=== PATIENT | female | born 1960 | race Caucasian/White ===

== ENCOUNTER 2024-09-20 17:01 | Inpatient (IN) ==
[2024-09-20] MEDS: 0.9 % SODIUM CHLORIDE 1,000 ML IV ONE ×2 (17:20→19:29)
[2024-09-20] MEDS: NOREPINEPHRINE 250 ML IV SCH ×2 (17:51→22:14)
[2024-09-20] MEDS: 0.9 % SODIUM CHLORIDE 250 ML IV SCH ×2 (17:53→22:14)
[2024-09-20 17:58] LABS: Basophils # (Auto) 0.01 K/mcL (0.00-0.30); Basophils % (Auto) 0.1 % (0.0-2.0); Eosinophils # (Auto) 0.34 K/mcL (0.00-0.70); Eosinophils % (Auto) 2.9 % (0.0-7.0); Hematocrit 35.7 % (34.1-44.9); Hemoglobin 11.9 g/dL (11.2-15.7); Lymphocytes # (Auto) 1.27 K/mcL (1.50-4.80); Mean Cell Volume 88.4 fL (80.0-100.0); Mean Corpuscular HGB Conc 33.3 g/dL (31.0-36.0); Mean Platelet Volume 11.2 fL (8.8-12.5); Monocytes # (Auto) 0.67 K/mcL (0.10-0.90); Monocytes % (Auto) 5.8 % (1.0-12.0); Neutrophils % (Auto) 79.8 % (38.0-78.0); Platelet Count 231 K/mcL (140-440); RBC 4.04 M/mcL (3.59-5.38); Red Cell Distribution Width 13.8 % (11.5-14.5); WBC 11.6 K/mcL (4.5-11.0)
[2024-09-20 18:27] LABS: ALT/SGPT 19 U/L (<40); AST/SGOT 16 U/L (<32); Albumin 3.8 gm/dL (3.2-5.2); Albumin/Globulin Ratio 1.4 (1.0-2.3); Alkaline Phosphatase 87 U/L (39-117); Bilirubin,Total 0.8 mg/dL (0.1-1.0); Blood Urea Nitrogen 46 mg/dL (8-23); Calcium 9.4 mg/dL (8.6-10.4); Carbon Dioxide 19 mmol/L (22-30); Chloride 100 mmol/L (96-108); Globulin 2.8 gm/dL (2.2-3.7); Glomerular Filtration Rate 10; Glucose 136 mg/dL (70-105); Potassium 3.8 mmol/L (3.3-5.1); Sodium 136 mmol/L (133-145)
[2024-09-20] MEDS ORDERED: IPRATROPIUM/ALBUTEROL 3 ML AMPUL.NEB NEB PRN (21:29)
[2024-09-20] MEDS ORDERED: ONDANSETRON 4 MG/2 ML VIAL IV PRN (21:29)
[2024-09-20] MEDS ORDERED: LOPERAMIDE 2 MG CAPSULE PO PRN (21:29)
[2024-09-20 22:09] LABS: Haptoglobin 276 mg/dL (30-200); Lactate Dehydrogenase 177 U/L (135-225)
[2024-09-20] MEDS: PIPERACILLIN SODIUM/TAZOBACTAM 4.5 GM in DEXTROSE 5% IN WATER 100 ML IV SCH (22:12)
[2024-09-20] MEDS: 0.9 % SODIUM CHLORIDE 1,000 ML IV SCH (22:12)
[2024-09-20] MEDS: 0.9 % SODIUM CHLORIDE 10 ML SYRINGE IV SCH (22:13)
[2024-09-20] MEDS: NOREPINEPHRINE BITARTRATE 8 MG in 0.9 % SODIUM CHLORIDE 242 ML IV SCH (22:14)
[2024-09-20] MEDS: HEPARIN 5,000 UNIT/ML VIAL SQ SCH (22:45)
[2024-09-20 23:25] LABS: Appearance,Urine Cloudy (Clear); Bacteria,Urine Mod /hpf (0); Bilirubin,Urine Negative (Negative); Color,Urine Yellow; Glucose,Urine (UA) 500 mg/dL (Negative); Ketones,Urine Trace mg/dL (Negative); Leukocyte Esterase,Urine Moderate /uL (Negative); Nitrate,Urine Positive (Negative); PH,Urine 5.5 (5.0-9.0); Protein,Urine 100 mg/dL (Negative); Urine Blood Moderate ery/mcL (Negative); Urine RBC 30 /hpf (0-3); Urine Squamous Epithelial Cell 4 /hpf (0-4); Urine WBC > 182 /hpf (0-4); Urobilinogen,Urine Normal
[2024-09-20] MEDS: PRAMIPEXOLE 1 MG TABLET PO ONE (23:45)
[2024-09-21] MEDS: ACETAMINOPHEN 325 MG TABLET PO PRN (04:15)
[2024-09-21 06:04] LABS: Basophils # (Auto) 0.01 K/mcL (0.00-0.30); Basophils % (Auto) 0.1 % (0.0-2.0); Eosinophils # (Auto) 0.43 K/mcL (0.00-0.70); Eosinophils % (Auto) 4.5 % (0.0-7.0); Hematocrit 31.7 % (34.1-44.9); Hemoglobin 10.8 g/dL (11.2-15.7); Lymphocytes # (Auto) 0.97 K/mcL (1.50-4.80); Lymphocytes % (Auto) 10.1 % (15.5-49.0); Mean Cell Volume 87.8 fL (80.0-100.0); Mean Corpuscular HGB Conc 34.1 g/dL (31.0-36.0); Mean Platelet Volume 10.9 fL (8.8-12.5); Monocytes # (Auto) 0.73 K/mcL (0.10-0.90); Monocytes % (Auto) 7.6 % (1.0-12.0); Neutrophils % (Auto) 77.3 % (38.0-78.0); Platelet Count 199 K/mcL (140-440); RBC 3.61 M/mcL (3.59-5.38); WBC 9.6 K/mcL (4.5-11.0)
[2024-09-21 06:20] LABS: Phosphorous 3.9 mg/dL (2.5-4.5)
[2024-09-21 06:44] LABS: ALT/SGPT 16 U/L (<40); AST/SGOT 13 U/L (<32); Albumin 3.3 gm/dL (3.2-5.2); Albumin/Globulin Ratio 1.4 (1.0-2.3); Alkaline Phosphatase 79 U/L (39-117); Bilirubin,Total 0.6 mg/dL (0.1-1.0); Blood Urea Nitrogen 41 mg/dL (8-23); Calcium 8.3 mg/dL (8.6-10.4); Carbon Dioxide 16 mmol/L (22-30); Chloride 105 mmol/L (96-108); Globulin 2.4 gm/dL (2.2-3.7); Glomerular Filtration Rate 14; Glucose 112 mg/dL (70-105); Potassium 3.3 mmol/L (3.3-5.1); Sodium 136 mmol/L (133-145)
[2024-09-21] MEDS: OMEPRAZOLE 20 MG CAPSULE PO SCH (07:28)
[2024-09-21] MEDS ORDERED: PANTOPRAZOLE 40 MG TABLET PO SCH (07:30)
[2024-09-21] MEDS: ASPIRIN 81 MG TAB.CHEW PO SCH (10:19)
[2024-09-21] MEDS: POTASSIUM CHLORIDE 20 MEQ TABLET PO SCH (10:20)
[2024-09-21] MEDS: Dapagliflozin Propanediol [Farxiga] 10 mg tablet PO SCH (11:43)
[2024-09-21] MEDS: PRAMIPEXOLE 1 MG TABLET PO SCH (20:16)
[2024-09-21] MEDS: ATORVASTATIN 20 MG TABLET PO SCH (20:16)
[2024-09-21] MEDS: LACTOBACILLUS 1 CAPSULE PO SCH (20:16)
[2024-09-22 06:39] LABS: Phosphorous 2.6 mg/dL (2.5-4.5)
[2024-09-22 06:42] LABS: ALT/SGPT 20 U/L (<40); AST/SGOT 15 U/L (<32); Albumin 3.2 gm/dL (3.2-5.2); Albumin/Globulin Ratio 1.5 (1.0-2.3); Alkaline Phosphatase 90 U/L (39-117); Basophils # (Auto) 0.01 K/mcL (0.00-0.30); Basophils % (Auto) 0.2 % (0.0-2.0); Bilirubin,Total 0.6 mg/dL (0.1-1.0); Blood Urea Nitrogen 27 mg/dL (8-23); Calcium 8.3 mg/dL (8.6-10.4); Carbon Dioxide 17 mmol/L (22-30); Chloride 110 mmol/L (96-108); Eosinophils % (Auto) 6.1 % (0.0-7.0); Globulin 2.1 gm/dL (2.2-3.7); Glomerular Filtration Rate 25; Glucose 94 mg/dL (70-105); Hematocrit 33.8 % (34.1-44.9); Hemoglobin 11.4 g/dL (11.2-15.7); Lymphocytes % (Auto) 18.3 % (15.5-49.0); Mean Cell Volume 88.5 fL (80.0-100.0); Mean Corpuscular HGB Conc 33.7 g/dL (31.0-36.0); Mean Platelet Volume 11.4 fL (8.8-12.5); Monocytes # (Auto) 0.57 K/mcL (0.10-0.90); Monocytes % (Auto) 8.7 % (1.0-12.0); Neutrophils % (Auto) 66.2 % (38.0-78.0); Platelet Count 179 K/mcL (140-440); RBC 3.82 M/mcL (3.59-5.38); Sodium 138 mmol/L (133-145); WBC 6.6 K/mcL (4.5-11.0)
[2024-09-22] MEDS ORDERED: PIPERACILLIN SODIUM/TAZOBACTAM 4.5 GM in DEXTROSE 5% IN WATER 100 ML IV SCH (08:00)
[2024-09-22] MEDS: PIPERACILLIN SODIUM/TAZOBACTAM 4.5 GM in DEXTROSE 5% IN WATER 100 ML IV SCH (08:22)
[2024-09-23 05:35] LABS: Basophils # (Auto) 0.03 K/mcL (0.00-0.30); Basophils % (Auto) 0.6 % (0.0-2.0); Eosinophils # (Auto) 0.46 K/mcL (0.00-0.70); Eosinophils % (Auto) 9.6 % (0.0-7.0); Hematocrit 29.6 % (34.1-44.9); Hemoglobin 9.7 g/dL (11.2-15.7); Lymphocytes # (Auto) 1.38 K/mcL (1.50-4.80); Lymphocytes % (Auto) 28.8 % (15.5-49.0); Mean Cell Volume 89.2 fL (80.0-100.0); Mean Corpuscular HGB Conc 32.8 g/dL (31.0-36.0); Mean Platelet Volume 10.6 fL (8.8-12.5); Monocytes # (Auto) 0.49 K/mcL (0.10-0.90); Monocytes % (Auto) 10.2 % (1.0-12.0); Neutrophils % (Auto) 50.4 % (38.0-78.0); Platelet Count 147 K/mcL (140-440); RBC 3.32 M/mcL (3.59-5.38); Red Cell Distribution Width 14.4 % (11.5-14.5); WBC 4.8 K/mcL (4.5-11.0)
[2024-09-23 06:02] LABS: Phosphorous 2.2 mg/dL (2.5-4.5)
[2024-09-23 06:03] LABS: ALT/SGPT 20 U/L (<40); AST/SGOT 14 U/L (<32); Albumin 2.7 gm/dL (3.2-5.2); Albumin/Globulin Ratio 1.6 (1.0-2.3); Alkaline Phosphatase 75 U/L (39-117); Bilirubin,Total 0.4 mg/dL (0.1-1.0); Blood Urea Nitrogen 16 mg/dL (8-23); Calcium 7.2 mg/dL (8.6-10.4); Carbon Dioxide 17 mmol/L (22-30); Chloride 115 mmol/L (96-108); Globulin 1.7 gm/dL (2.2-3.7); Glomerular Filtration Rate 43; Glucose 81 mg/dL (70-105); Sodium 140 mmol/L (133-145)
[2024-09-23] MEDS: MAGNESIUM SULFATE 2 GM/50 ML BAG IV ONE (10:12)
[2024-09-23] MEDS: POTASSIUM PHOSPHATE 20 MEQ in DEXTROSE 5% IN WATER 250 ML IV ONE (20:46)
[2024-09-23] MEDS: POTASSIUM PHOSPHATE 66 MEQ/15 ML VIAL IV ONE (20:52)
[2024-09-24 05:50] LABS: Basophils # (Auto) 0.04 K/mcL (0.00-0.30); Basophils % (Auto) 0.9 % (0.0-2.0); Eosinophils # (Auto) 0.49 K/mcL (0.00-0.70); Eosinophils % (Auto) 10.6 % (0.0-7.0); Hematocrit 30.7 % (34.1-44.9); Hemoglobin 10.3 g/dL (11.2-15.7); Lymphocytes # (Auto) 1.38 K/mcL (1.50-4.80); Lymphocytes % (Auto) 29.8 % (15.5-49.0); Mean Cell Volume 89.2 fL (80.0-100.0); Mean Corpuscular HGB Conc 33.6 g/dL (31.0-36.0); Mean Platelet Volume 10.5 fL (8.8-12.5); Monocytes # (Auto) 0.44 K/mcL (0.10-0.90); Monocytes % (Auto) 9.5 % (1.0-12.0); Neutrophils % (Auto) 48.6 % (38.0-78.0); Platelet Count 156 K/mcL (140-440); RBC 3.44 M/mcL (3.59-5.38); Red Cell Distribution Width 14.4 % (11.5-14.5); WBC 4.6 K/mcL (4.5-11.0)
[2024-09-24 06:10] LABS: Phosphorous 3.1 mg/dL (2.5-4.5)
[2024-09-24 06:26] LABS: ALT/SGPT 22 U/L (<40); AST/SGOT 15 U/L (<32); Albumin 2.9 gm/dL (3.2-5.2); Albumin/Globulin Ratio 1.1 (1.0-2.3); Alkaline Phosphatase 92 U/L (39-117); Bilirubin,Total 0.3 mg/dL (0.1-1.0); Blood Urea Nitrogen 13 mg/dL (8-23); Calcium 8.5 mg/dL (8.6-10.4); Carbon Dioxide 20 mmol/L (22-30); Chloride 110 mmol/L (96-108); Globulin 2.6 gm/dL (2.2-3.7); Glomerular Filtration Rate 47; Glucose 99 mg/dL (70-105); Potassium 4.5 mmol/L (3.3-5.1); Sodium 140 mmol/L (133-145)
[2024-09-24] MEDS: MAGNESIUM OXIDE 400 MG TABLET PO SCH (09:08)
== END 2024-09-24 10:55 | disposition home or self-care (01) | DRG 872 ==
LOC: ED 17:01 → ICU 21:20
PROVIDERS: ADMIT Internal Medicine; ATTEND Internal Medicine